=== PATIENT | female | born 1930 | race African-American/Black ===

== ENCOUNTER 2018-12-18 11:19 | Inpatient (IN) | payer MEDICARE, MEDICAID ==
[~2018-12-18] VITALS: Ht 162.6 cm; Wt 64.9 kg
[2018-12-18 12:15] LABS: BASOPHILS % 0.7 % (0.0-2.0); HEMOGLOBIN. 10.7 g/dL (12.0-16.0); LYMPHOCYTES % 18.7 % (20.0-50.0); MEAN CORPUSCULAR HEMOGLOBIN 30.6 pg (28.0-32.0); MEAN CORPUSCULAR VOLUME 91.5 fL (81.0-99.0); MEAN PLATELET VOLUME 8.5 fl (7.4-10.4); MONOCYTES % 12.6 % (2.0-8.0); PLATELET 193 x1000/uL (130-400); RED BLOOD CELL COUNT 3.49 mill/uL (4.2-5.4); RED CELL DISTRIBUTION WIDTH 12.9 % (11.6-14.6)
[2018-12-18 12:23] LABS: CHLORIDE 108 mEq/L (98-107)
[2018-12-18 12:33] LABS: PROTHROMBIN TIME 10.4 sec (9.6-11.0)
[2018-12-18] MEDS ORDERED: ONDANSETRON HCL 4MG/2ML INJ IV ONE (14:00)
[2018-12-18] MEDS ORDERED: MORPHINE SULFATE 4 MG/ML CPJ (NOT FOR IM USE) IV ONE (14:00)
[2018-12-18] MEDS ORDERED: LABETALOL HCL 20MG/4ML CARPUJECT IV ONE (14:00)
[2018-12-18] MEDS ORDERED: HALOPERIDOL LACTATE 5MG/ML VIAL IM ONE (15:00)
[2018-12-18] MEDS ORDERED: HYDRALAZINE 20MG/ML VIAL IV PRN ×2 (15:30→19:45)
[2018-12-18] MEDS ORDERED: DIPHENHYDRAMINE 50MG/ML VIAL IV PRN ×2 (15:30→19:45)
[2018-12-18] MEDS ORDERED: LORAZEPAM 2MG/ML CPJ IV PRN (15:30)
[2018-12-18] MEDS ORDERED: ACETAMINOPHEN 325MG TABLET PO PRN ×2 (15:30→19:45)
[2018-12-18] MEDS ORDERED: ONDANSETRON HCL 4MG/2ML INJ IV PRN (15:30)
[2018-12-18] MEDS: SODIUM CHLORIDE 0.9% INJ 3ML FLUSH IVF SCH (16:58)
[2018-12-18 19:30] VITALS: BP_SYST 165; BP_DIAS 86; BP_DIAS 87
[2018-12-18] MEDS ORDERED: GUAIFENESIN 200MG/10ML SUGAR FREE UDC PO PRN (19:45)
[2018-12-18] MEDS ORDERED: MAGNESIUM/ALUMINUM HYDROXIDE/SIMETHICONE 30ML UDC PO PRN (19:45)
[2018-12-18] MEDS ORDERED: DORZOLAM/TIMOLOL 2.23/0.68% OPHTH DROPS 10ML BOTHEYE SCH (21:00)
[2018-12-18] MEDS: CLONIDINE 0.1MG TABLET PO PRN (22:18)
[2018-12-18] MEDS: MEMANTINE HCL 10MG TABLET PO SCH (22:18)
[2018-12-18] MEDS: LATANOPROST 0.005% OPHTH DROPS 2.5ML BOTHEYE SCH (22:19)
[2018-12-18] MEDS: DORZOLAMIDE 2% OPHTH 10 ML BOTTLE BOTHEYE SCH (22:19)
[2018-12-18] MEDS: ENOXAPARIN 40MG/0.4ML SYR SUBCUT SCH (22:19)
[2018-12-18] MEDS: BRIMONIDINE 0.2% OPHTH DROPS 5ML BOTHEYE SCH (22:20)
[2018-12-18] MEDS: TIMOLOL MALEATE 0.5% OPHTH DROPS 5ML EACHEYE SCH (22:20)
[2018-12-19] MEDS ORDERED: LOSA100T32 PO (00:01)
[2018-12-19] MEDS ORDERED: DORZ10DR12 EACHEYE (00:01)
[2018-12-19] MEDS ORDERED: XALAO EACHEYE (00:01)
[2018-12-19] MEDS ORDERED: MEMA28CA PO (00:01)
[2018-12-19] MEDS ORDERED: ATOR40TA70 PO (00:01)
[2018-12-19] MEDS ORDERED: FURO-152 PO (00:01)
[2018-12-19] MEDS ORDERED: MOM PO (00:01)
[2018-12-19] MEDS ORDERED: MAG-55 PO (00:01)
[2018-12-19] MEDS ORDERED: ENAL10TA PO (00:01)
[2018-12-19] MEDS ORDERED: ATEN50TA PO (00:01)
[2018-12-19] MEDS ORDERED: BRIM5DRO6 EACHEYE (00:01)
[2018-12-19 04:00] VITALS: BP 145/80
[2018-12-19] MEDS: SODIUM CHLORIDE 0.9% INJ 3ML FLUSH IVF SCH ×3 (06:10→21:08)
[2018-12-19] MEDS: BRIMONIDINE 0.2% OPHTH DROPS 5ML BOTHEYE SCH ×2 (09:27→21:08)
[2018-12-19] MEDS: TIMOLOL MALEATE 0.5% OPHTH DROPS 5ML EACHEYE SCH ×2 (09:27→21:08)
[2018-12-19] MEDS: DORZOLAMIDE 2% OPHTH 10 ML BOTTLE BOTHEYE SCH ×2 (09:27→21:07)
[2018-12-19] MEDS: LOSARTAN POTASSIUM 100 MG TABLET PO SCH (09:28)
[2018-12-19] MEDS: ENALAPRIL 5MG TABLET PO SCH (09:28)
[2018-12-19] MEDS: MEMANTINE HCL 10MG TABLET PO SCH ×2 (09:28→21:07)
[2018-12-19] MEDS: ATENOLOL 50 MG TABLET PO SCH (09:29)
[2018-12-19 20:00] VITALS: BP 129/102
[2018-12-19] MEDS: CLONIDINE 0.1MG TABLET PO PRN (21:07)
[2018-12-19] MEDS: ENOXAPARIN 40MG/0.4ML SYR SUBCUT SCH (21:07)
[2018-12-19] MEDS: LATANOPROST 0.005% OPHTH DROPS 2.5ML BOTHEYE SCH (21:08)
[2018-12-20 04:00] VITALS: BP 132/81
[2018-12-20] MEDS: SODIUM CHLORIDE 0.9% INJ 3ML FLUSH IVF SCH ×2 (06:00→20:59)
[2018-12-20] MEDS: MEMANTINE HCL 10MG TABLET PO SCH ×2 (09:03→20:58)
[2018-12-20] MEDS: LOSARTAN POTASSIUM 100 MG TABLET PO SCH (09:03)
[2018-12-20] MEDS: ENALAPRIL 5MG TABLET PO SCH (09:04)
[2018-12-20] MEDS: ATENOLOL 50 MG TABLET PO SCH (09:04)
[2018-12-20] MEDS: BRIMONIDINE 0.2% OPHTH DROPS 5ML BOTHEYE SCH ×2 (09:05→20:59)
[2018-12-20] MEDS: DORZOLAMIDE 2% OPHTH 10 ML BOTTLE BOTHEYE SCH ×2 (09:05→20:59)
[2018-12-20] MEDS: TIMOLOL MALEATE 0.5% OPHTH DROPS 5ML EACHEYE SCH ×2 (09:05→20:59)
[2018-12-20 17:45] VITALS: BP 127/79
[2018-12-20] MEDS: ENOXAPARIN 40MG/0.4ML SYR SUBCUT SCH (20:58)
[2018-12-20] MEDS: LATANOPROST 0.005% OPHTH DROPS 2.5ML BOTHEYE SCH (20:58)
[2018-12-21] MEDS: SODIUM CHLORIDE 0.9% INJ 3ML FLUSH IVF SCH ×2 (05:52→14:00)
[2018-12-21 06:00] VITALS: BP 168/63
[2018-12-21] MEDS: CLONIDINE 0.1MG TABLET PO PRN ×2 (06:19→15:36)
[2018-12-21 08:00] VITALS: BP 161/56
[2018-12-21] MEDS: ATENOLOL 50 MG TABLET PO SCH (09:00)
[2018-12-21] MEDS: MEMANTINE HCL 10MG TABLET PO SCH (09:00)
[2018-12-21] MEDS: TIMOLOL MALEATE 0.5% OPHTH DROPS 5ML EACHEYE SCH (09:02)
[2018-12-21] MEDS: LOSARTAN POTASSIUM 100 MG TABLET PO SCH (09:02)
[2018-12-21] MEDS: DORZOLAMIDE 2% OPHTH 10 ML BOTTLE BOTHEYE SCH (09:02)
[2018-12-21] MEDS: ENALAPRIL 5MG TABLET PO SCH (09:02)
[2018-12-21] MEDS: BRIMONIDINE 0.2% OPHTH DROPS 5ML BOTHEYE SCH (09:03)
[2018-12-21 09:30] VITALS: BP 141/59
[2018-12-21 12:00] VITALS: BP 149/50
[2018-12-21 16:45] VITALS: BP 151/58
== END 2018-12-21 17:50 | disposition home or self-care (01) | DRG 199 ==
LOC: ER 11:19 → 7WST 15:57 → EDBEDREQ 15:58 → EDBEDREQTM 15:58 → ENRESERV 18:08 → 7WST 21:28
PROVIDERS: ADMIT Internal Medicine; ATTEND Internal Medicine
DX: I16.0 Hypertensive urgency (principal); I67.4 Hypertensive encephalopathy; I50.9 Heart failure, unspecified; E44.1 Mild protein-calorie malnutrition; G30.9 Alzheimer's disease, unspecified; F02.80 Dementia in other diseases classified elsewhere, unspecified severity, without behavioral disturbance, psychotic disturbance, mood disturbance, and anxiety; I11.0 Hypertensive heart disease with heart failure; H40.9 Unspecified glaucoma
CPT/HCPCS: 36415; 71045; 84484; 93005; 96374; 96375; 99285; J1630; J1650; J2270; J2405; J3490

== ENCOUNTER 2019-07-29 19:21 | Emergency (ER) | payer MEDICARE, MEDICAID ==
[~2019-07-29] VITALS: Ht 167.6 cm; Wt 74.0 kg
[~2019-07-29 19:21] MED LIST: ATEN50TA PO; ATOR40TA70 PO; BRIM5DRO6 EACHEYE; DORZ10DR12 EACHEYE; ENAL10TA PO; FURO-152 PO; LOSA100T32 PO; MAG-55 PO; MEMA28CA PO; MOM PO; XALAO EACHEYE
[2019-07-30 09:23] VITALS: BP 170/56
== END 2019-07-30 09:23 | disposition home or self-care (01) ==
LOC: ER 19:21
DX: S60.221A Contusion of right hand, initial encounter (principal); M25.441 Effusion, right hand; F03.90 Unspecified dementia, unspecified severity, without behavioral disturbance, psychotic disturbance, mood disturbance, and anxiety; M85.841 Other specified disorders of bone density and structure, right hand; H40.9 Unspecified glaucoma; I10 Essential (primary) hypertension; X58.XXXA Exposure to other specified factors, initial encounter; Y93.9 Activity, unspecified; Y92.9 Unspecified place or not applicable
CPT/HCPCS: 73130; 93971; 99284; Z7610